=== PATIENT | female | born 1955 | race Caucasian/White ===

== ENCOUNTER 2016-11-10 10:01 | Emergency (ER) | payer OTHER ==
--- NOTE | 2016-11-10 11:03 | ED ORDER SUMMARY ---
..... Patient: MIGUEL ÁNGEL BERNSTEIN OrderSheet [facility] VisitID: [id number] [address] [place] [address] 61y, F Registration Date/Time: 11/10/2016 ORDER SHEET Weight: 113.3 kg (stated) Allergies: No Known Drug Allergy GENERAL ORDERS: Foot 3V Right Urgent (10:11/10/2016 Jossue Shukla) (Ack 10:26 IJurca ER Tech1) (10:58 IJurca ER Tech1) Dress Wounds (gauze) (baci) (10:29 11/10/2016 Jossue Shukla) (11:35 DDean R.N.) Irrigate Wounds (10:30 11/10/2016 Jossue Shukla) (11:35 DDean R.N.) MEDICATION ORDERS: Keflex PO 500 mg (NOW) (10:11/10/2016 Jossue Shukla) (Ack 10:41 DDean R.N.) (10:54 DDean R.N.) Bactrim DS PO (Tablet 800-160 mg) 1 tab (NOW) (10:11/10/2016 Jossue Shukla) (Ack 10:41 DDean R.N.) (10:55 DDean R.N.) IV FLUIDS: ORDER SHEET NOTES: [Electronically signed by Deloris Ghotra R.N. (14:11/10/2016)] [Electronically signed by Thierry Barton Dr. (23:04 11/10/2016)] [Electronically locked/signed by Deloris Ghotra R.N. (14:11/10/2016)]
--- NOTE | 2016-11-10 11:03 | ED CLINICAL REPORT ---
Clinical Report - Physicians/Mid Levels [facility] [address] [place] [address] 11/10/2016 10:02 Patient: MIGUEL ÁNGEL BERNSTEIN Time Seen: 1020. Arrived- By private vehicle. Historian- patient. HISTORY OF PRESENT ILLNESS Chief Complaint: SKIN RASH. This started past few days and is still present (unchanged). It was gradual in onset and has been constant but is not gone now. It is described as painful. It has been located on the left foot dorsum. A possible cause has been identified (infection from blister to foot.). (states she has gout and likely broke the bone in her foot sometime but has not seen a doctor. reports it healed however with dexter abnormality. swelling noted with redness.). Similar symptoms previously: None. Recent medical care: Not recently seen/assessed. REVIEW OF SYSTEMS No fever, difficulty breathing, chest pain or abdominal pain. All systems otherwise negative, except as recorded above. PAST HISTORY See nurses notes. Tetanus immunization status is up-to-date. Medications: Metformin 500mg - 1 at breakfast, 2 and lunch and dinner . Methocarbamol Oral 750 mg- 2 tabs BID prn . ASA Oral 81mg daily . FLUoxetine HCl Oral 20 mg- 2 tabs daily . Glipizide Oral 10 mg- 2 tabs daily . Lisinopril-Hydrochlorothiazide Oral (Tablet 10-12.5 mg) 1 tablet, daily . Vicodin Oral 5 mg - 2 tabs BID. MG oral tab 1 daily . Allergies: No Known Drug Allergy. SOCIAL HISTORY Never smoker. No alcohol use or drug use. No recent travel. Is a local resident. ADDITIONAL NOTES The nursing notes have been reviewed. PHYSICAL EXAM Vital Signs: 11/10/2016 10:08 BP: 110/47. HR: 74. RR: 18. O2 saturation: 98%. Temp: 98.3 F. Pain level now: 0/10. 11/10/2016 10:07 Pain level now: 0/10. Blood pressure normal. Oxygen saturation normal. Appearance: Alert. Oriented X3. No acute distress. CVS: Normal heart rate and rhythm. Heart sounds normal. Respiratory: No respiratory distress. Breath sounds normal. Chest nontender. Abdomen: Nontender. No organomegaly. Skin: Small area of cellulitis to right foot. (dexter abnormality of the fist metatarsal joint. overlying rupture blister with surrounding are of cellulitis. no abscess. no masses. compartments soft. neurovasc intact.). Extremities: Normal external inspection. Extremities nontender. Neuro: Oriented X 3. No motor deficit. No sensory deficit. LABS, X-RAYS, AND EKG Rt Foot X-ray: No fracture. Normal alignment. 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 Views: AP, lateral and oblique. Technique: good. The X-rays were independently viewed by me and interpreted by the radiologist. The X-rays were discussed with the radiologist (via pacs). PROGRESS AND PROCEDURES Course of Care: The patient is a pleasant 61 yo female with hx of possible fracture/gout to the foot. Patient to be evaluated with radiographs to check the dexter abnormality on exam. Patient agreeable to the treatment and plan. patient without acute osseous abnormalities. patient without systemic symptoms. patient non-toxic. abx provided in the ED. Discussed with patient her work up in the ED, diagnosis, home care, followup , and return precautions. All questions answered. Patient expressed understanding of these instructions and was agreeable to them. Disposition: Discharged. Condition: good. CLINICAL IMPRESSION 11/10/2016 10:08 BP: 110/47. HR: 74. RR: 18. O2 saturation: 98%. Temp: 98.3 F. Pain level now: 0/10. 11/10/2016 10:07 Pain level now: 0/10. Blood pressure normal. Oxygen saturation normal. Cellulitis of the right foot (acute). acute right foot pain. INSTRUCTIONS Warnings: GENERAL WARNINGS: Return or contact your physician immediately if your condition worsens or changes unexpectedly, if not improving as expected, or if other problems arise. Specifically return if pain, vomiting, bleeding, breathing difficulty or fever. Prescription Medications: Bactrim DS 800 mg / 160 mg: take 1 tablet orally every 12 hours for 10 days. No refill. Substitution is permissible. (disp 20 tabs) Keflex 500 mg: take 1 capsule orally every 12 hours for 10 days. No refill. Substitution is permissible. (disp 20 caps) Follow-up: Return to the emergency department as needed. Follow up with your doctor in three days. Reason for referral: recheck today's concerns. Summary of care provided to patient via paper. Screening today revealed the patient's blood pressure to be in the normal range. The patient should follow up with a primary care provider for blood pressure management. Understanding of the discharge instructions verbalized by patient. (Electronically signed by Thierry Barton Dr. 11/10/2016 23:04)
--- NOTE | 2016-11-10 11:03 | ED ORDER SUMMARY ---
..... Patient: MIGUEL ÁNGEL BERNSTEIN OrderSheet [facility] VisitID: [id number] [address] [place] [address] 61y, F Registration Date/Time: 11/10/2016 ORDER SHEET Weight: 113.3 kg (stated) Allergies: No Known Drug Allergy GENERAL ORDERS: Foot 3V Right Urgent (10:11/10/2016 Jossue Shukla) (Ack 10:26 IJurca ER Tech1) (10:58 IJurca ER Tech1) Dress Wounds (gauze) (baci) (10:29 11/10/2016 Jossue Shukla) (11:35 DDean R.N.) Irrigate Wounds (10:30 11/10/2016 Jossue Shukla) (11:35 DDean R.N.) MEDICATION ORDERS: Keflex PO 500 mg (NOW) (10:11/10/2016 Jossue Shukla) (Ack 10:41 DDean R.N.) (10:54 DDean R.N.) Bactrim DS PO (Tablet 800-160 mg) 1 tab (NOW) (10:11/10/2016 Jossue Shukla) (Ack 10:41 DDean R.N.) (10:55 DDean R.N.) IV FLUIDS: ORDER SHEET NOTES: [Electronically signed by Deloris Ghotra R.N. (14:11/10/2016)] [Electronically signed by Thierry Barton Dr. (23:04 11/10/2016)] [Electronically locked/signed by Deloris Ghotra R.N. (14:11/10/2016)]
--- NOTE | 2016-11-10 11:03 | ED NURSING NOTES ---
Clinical Report - Nurses [facility] [address] [place] [address] 11/10/2016 10:02 Patient: MIGUEL ÁNGEL BERNSTEIN TRIAGE Triage time 1008. Acuity: LEVEL 4. --10:12 Deloris Ghotra R.N. 10:07 11/10/16. Pain level now: 010. --10:12 Deloris Ghotra R.N. 10:08 11/10/16. BP: 110/47. HR: 74. RR: 18. O2 saturation: 98%. Temp: 98.3 F. Pain level now: 010. --10:13 Deloris Ghotra R.N. Triage time 1007. Chief Complaint: TENDER AREA and . swelling and redness to rt foot. --14:05 Deloris Ghotra R.N. Weight: 113.3 kg stated. Height/Length: 66 inches Per Patient. BMI: 40.3. --10:09 Deloris Ghotra R.N. Medications MG oral tab 1 daily . --13:58 Deloris Ghotra R.N. ASA Oral 81mg daily . FLUoxetine HCl Oral 20 mg- 2 tabs daily . Glipizide Oral 10 mg- 2 tabs daily . Lisinopril-Hydrochlorothiazide Oral (Tablet 10-12.5 mg) 1 tablet, daily . Vicodin Oral 5 mg - 2 tabs BID. --13:59 Deloris Ghotra R.N. Methocarbamol Oral 750 mg- 2 tabs BID prn . --14:02 Deloris Ghotra R.N. Metformin 500mg - 1 at breakfast, 2 and lunch and dinner . --14:03 Deloris Ghotra R.N. Allergies No Known Drug Allergy. --12:12 Deloris Ghotra R.N. History Arrived by private vehicle. Historian: patient. Unaccompanied. Primary physician ([facility]). This started yesterday. 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 SOCIAL HX: Never smoker. No alcohol use or drug use. --10:12 Deloris Ghotra R.N. PROBLEMS: Hypertension. Diabetes Mellitus. --10:09 Deloris Ghotra R.N. Fibromyalgia. Diaqbetic neuropathy. --10:12 Deloris Ghotra R.N. ADDITIONAL SURGERIES: Appendectomy. Facial reconstruction on face. --10:12 Deloris Gohtra R.N. Interventions ID band on patient. To treatment room. --10:12 Deloris Ghotra R.N. PHYSICAL ASSESSMENT 10:08. Ambulatory to room. Patient gowned. GENERAL / NEURO / PSYCH: Alert. The patient does not appear to be in acute distress. Oriented X 4. RESPIRATORY: Respirations not labored. CVS: Capillary refill less than 2 seconds. SKIN: Drainage. Skin tenderness present. Swelling present. Increased warmth present. Erythema present. --10:14 Deloris Ghotra R.N. NURSING PROGRESS NOTES 10:08. Patient gowned. Head of bed elevated. Reassurance given. Patient identifiers checked. Call light placed in reach. Side rails up. Bed placed in lowest position. Patient ready for evaluation- chart flagged. --10:14 Deloris Ghotra R.N. 10:41 11/10/2016 Keflex (Cephalexin) PO Capsules 500 mg given. Allergies verified and confirmed 5 rights. --10:54 Deloris Ghotra R.N. 10:41 11/10/2016 Bactrim DS (Sulfamethoxazole-TMP DS) PO Tablets 1 tab given. Allergies verified and confirmed 5 rights. --10:55 Deloris Ghotra R.N. Wound cleansed with sterile saline and chlorhexidine. Wound irrigated with 500 mL sterile NS using a high-pressure irrigation system; patient tolerated procedure well. 3D boot applied to right foot by tech; distal pulses intact, sensation intact and motor function within normal limits. --11:23 Miranda Katz late entry -11:20. Applied clean dressing consisting of adaptic and 4x4 gauze, following the application of antibiotic ointment. Secured with tape and kerlix. --11:47 Deloris Ghotra R.N. DISPOSITION / DISCHARGE 11:25. Condition at departure: stable. No learning barriers present. Discharge instructions provided and reviewed with the patient. Reviewed medication(s) (bactrim, keflex). Reviewed wound care instructions (post op shoe). Patient verbalized understanding. Written instructions provided in Yakut. The patient was discharged home and unaccompanied at time of discharge. She left the Emergency Department ambulatory and via private vehicle. Patient driving. --11:46 Deloris Ghotra R.N. 11:25 11/10/16. BP: 116/61. HR: 73. RR: 18. O2 saturation: 97% on room air. Temp: deferred. Pain level now: 0/10. --11:46 Deloris Ghotra R.N. Locked/Released at 11/10/2016 14:05 by Deloris Ghotra R.N.
--- NOTE | 2016-11-10 11:03 | ED NURSING NOTES ---
Clinical Report - Nurses [facility] [address] [place] [address] 11/10/2016 10:02 Patient: MIGUEL ÁNGEL BERNSTEIN TRIAGE Triage time 1008. Acuity: LEVEL 4. --10:12 Deloris Ghotra R.N. 10:07 11/10/16. Pain level now: 010. --10:12 Deloris Ghotra R.N. 10:08 11/10/16. BP: 110/47. HR: 74. RR: 18. O2 saturation: 98%. Temp: 98.3 F. Pain level now: 010. --10:13 Deloris Ghotra R.N. Triage time 1007. Chief Complaint: TENDER AREA and . swelling and redness to rt foot. --14:05 Deloris Ghotra R.N. Weight: 113.3 kg stated. Height/Length: 66 inches Per Patient. BMI: 40.3. --10:09 Deloris Ghotra R.N. Medications MG oral tab 1 daily . --13:58 Deloris Ghotra R.N. ASA Oral 81mg daily . FLUoxetine HCl Oral 20 mg- 2 tabs daily . Glipizide Oral 10 mg- 2 tabs daily . Lisinopril-Hydrochlorothiazide Oral (Tablet 10-12.5 mg) 1 tablet, daily . Vicodin Oral 5 mg - 2 tabs BID. --13:59 Deloris Ghotra R.N. Methocarbamol Oral 750 mg- 2 tabs BID prn . --14:02 Deloris Ghotra R.N. Metformin 500mg - 1 at breakfast, 2 and lunch and dinner . --14:03 Deloris Ghotra R.N. Allergies No Known Drug Allergy. --12:12 Deloris Ghotra R.N. History Arrived by private vehicle. Historian: patient. Unaccompanied. Primary physician ([facility]). This started yesterday. 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 SOCIAL HX: Never smoker. No alcohol use or drug use. --10:12 Deloris Ghotra R.N. PROBLEMS: Hypertension. Diabetes Mellitus. --10:09 Deloris Ghotra R.N. Fibromyalgia. Diaqbetic neuropathy. --10:12 Deloris Ghotra R.N. ADDITIONAL SURGERIES: Appendectomy. Facial reconstruction on face. --10:12 Deloris Ghotra R.N. Interventions ID band on patient. To treatment room. --10:12 Deloris Ghotra R.N. PHYSICAL ASSESSMENT 10:08. Ambulatory to room. Patient gowned. GENERAL / NEURO / PSYCH: Alert. The patient does not appear to be in acute distress. Oriented X 4. RESPIRATORY: Respirations not labored. CVS: Capillary refill less than 2 seconds. SKIN: Drainage. Skin tenderness present. Swelling present. Increased warmth present. Erythema present. --10:14 Deloris Ghotra R.N. NURSING PROGRESS NOTES 10:08. Patient gowned. Head of bed elevated. Reassurance given. Patient identifiers checked. Call light placed in reach. Side rails up. Bed placed in lowest position. Patient ready for evaluation- chart flagged. --10:14 Deloris Ghotra R.N. 10:41 11/10/2016 Keflex (Cephalexin) PO Capsules 500 mg given. Allergies verified and confirmed 5 rights. --10:54 Deloris Ghotra R.N. 10:41 11/10/2016 Bactrim DS (Sulfamethoxazole-TMP DS) PO Tablets 1 tab given. Allergies verified and confirmed 5 rights. --10:55 Deloris Ghotra R.N. Wound cleansed with sterile saline and chlorhexidine. Wound irrigated with 500 mL sterile NS using a high-pressure irrigation system; patient tolerated procedure well. 3D boot applied to right foot by tech; distal pulses intact, sensation intact and motor function within normal limits. --11:23 Miranda Katz late entry -11:20. Applied clean dressing consisting of adaptic and 4x4 gauze, following the application of antibiotic ointment. Secured with tape and kerlix. --11:47 Deloris Ghotra R.N. DISPOSITION / DISCHARGE 11:25. Condition at departure: stable. No learning barriers present. Discharge instructions provided and reviewed with the patient. Reviewed medication(s) (bactrim, keflex). Reviewed wound care instructions (post op shoe). Patient verbalized understanding. Written instructions provided in Hungarian. The patient was discharged home and unaccompanied at time of discharge. She left the Emergency Department ambulatory and via private vehicle. Patient driving. --11:46 Deloris Ghotra R.N. 11:25 11/10/16. BP: 116/61. HR: 73. RR: 18. O2 saturation: 97% on room air. Temp: deferred. Pain level now: 0/10. --11:46 Deloris Ghotra R.N. Locked/Released at 11/10/2016 14:05 by Deloris Ghotra R.N.
--- NOTE | 2016-11-10 11:21 | DIAGNOSTIC IMAGING REPORT ---
PROCEDURE: XR FOOT 3 VIEWS - RIGHT INDICATION: SWELLING, CELLULITIS, WARMTH TECHNIQUE: Three views. COMPARISON: None. 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 On the dorsal surface of the - hyper trophic bone there is cortical breakdown that could represent osteomyelitis. IMPRESSION: 1. First MTP joint bony hypertrophy and cortical breakdown suggestive of osteomyelitis.
--- NOTE | 2016-11-10 23:04 | ED DISCHARGE INSTRUCTIONS ---
Patient: MIGUEL ÁNGEL BERNSTEIN General Instructions [facility] VisitID: [id number] [address] [place] [address] 61y, F Registration Date/Time: 11/10/2016 11/10/2016 10:08 BP: 110/47. HR: 74. RR: 18. O2 saturation: 98%. Temp: 98.3 F. Pain level now: 0/10. 11/10/2016 10:07 Pain level now: 0/10. Blood pressure normal. Oxygen saturation normal. Cellulitis of the right foot (acute). acute right foot pain. INSTRUCTIONS Warnings: GENERAL WARNINGS: Return or contact your physician immediately if your condition worsens or changes unexpectedly, if not improving as expected, or if other problems arise. Specifically return if pain, vomiting, bleeding, breathing difficulty or fever. Prescription Medications: Bactrim DS 800 mg / 160 mg: take 1 tablet orally every 12 hours for 10 days. No refill. Substitution is permissible. (disp 20 tabs) Keflex 500 mg: take 1 capsule orally every 12 hours for 10 days. No refill. Substitution is permissible. (disp 20 caps) Follow-up: Return to the emergency department as needed. Follow up with your doctor in three days. Reason for referral: recheck today's concerns. Summary of care provided to patient via paper. Screening today revealed the patient's blood pressure to be in the normal range. The patient should follow up with a primary care provider for blood pressure management. Understanding of the discharge instructions verbalized by patient. ADDITIONAL INFORMATION Cellulitis You have an infection of the skin known as cellulitis. This usually starts with a scrape, cut, insect bite, blister or other opening in the skin which becomes infected. This is a serious condition. It must be watched closely to be sure the infection is not spreading. With antibiotic treatment, the size of the red area will gradually shrink in size until the skin returns to normal. This will take 7-10 days. The red area should never increase in size once the antibiotic medicine has been started. Occasionally, an infection will be resistant to one antibiotic and another one will have to be used. Home Care: 1) Limit the use of the affected part, since excess movement can cause the infection to spread. 2) If the infection is on your leg, walk as little as possible during the first few days of the treatment. Keep your leg elevated while sitting. This will reduce swelling. 3) Take all of the antibiotic medicine exactly as directed until it is gone. Be careful not to miss any doses, especially during the first seven days. Follow Up with your doctor or this facility as directed. Check the infected area daily for the warning signs listed below. Get Prompt Medical Attention if any of the following occur: -- Spreading area of redness -- Increasing swelling or pain -- Appearance of pus or drainage -- Fever over 100.4 F (38.0 C) oral, or over 101.4 F (38.6 C) rectal, after two days on antibiotics Sulfamethoxazole, Trimethoprim Oral tablet What is this medicine? SULFAMETHOXAZOLE; TRIMETHOPRIM or SMX-TMP (suhl fuh meth OK radha zohl; trye METH oh prim) is a combination of a sulfonamide antibiotic and a second antibiotic, trimethoprim. It is used to treat or prevent certain kinds of bacterial infections. It will not work for colds, flu, or other viral infections. How should I use this medicine? Take this medicine by mouth with a full glass of water. Follow the directions on the prescription label. Take your medicine at regular intervals. Do not take it more often than directed. Do not skip doses or stop your medicine early. Talk to your impersonator character regarding the use of this medicine in children. Special care may be needed. This medicine has been used in children as young as 2 months of age. What side effects may I notice from receiving this medicine? Side effects that you should report to your doctor or health health care specialist as soon as possible: allergic reactions like skin rash or hives, swelling of the face, lips, or tongue breathing problems fever or chills, sore throat irregular heartbeat, chest pain joint or muscle pain pain or difficulty passing urine red pinpoint spots on skin redness, blistering, peeling or loosening of the skin, including inside the mouth unusual bleeding or bruising unusually weak or tired yellowing of the eyes or skin Side effects that usually do not require medical attention (report to your doctor or health health care specialist if they continue or are bothersome): diarrhea dizziness headache loss of appetite nausea, vomiting nervousness What may interact with this medicine? Do not take this medicine with any of the following medications: aminobenzoate potassium dofetilide metronidazole This medicine may also interact with the following medications: MELISSA inhibitors like benazepril, enalapril, lisinopril, and ramipril cyclosporine digoxin diuretics indomethacin medicines for diabetes methenamine methotrexate phenytoin potassium supplements pyrimethamine sulfinpyrazone tricyclic antidepressants warfarin What if I miss a dose? If you miss a dose, take it as soon as you can. If it is almost time for your next dose, take only that dose. Do not take double or extra doses. Where should I keep my medicine? Keep out of the reach of children. Store at room temperature between 20 to 25 degrees C (68 to 77 degrees F). Protect from light. Throw away any unused medicine after the expiration date. What should I tell my health care provider before I take this medicine? They need to know if you have any of these conditions: anemia asthma being treated with anticonvulsants if you frequently drink alcohol containing drinks kidney disease liver disease low level of folic acid or [id number] dehydrogenase poor nutrition or malabsorption porphyria severe allergies thyroid disorder an unusual or allergic reaction to sulfamethoxazole, trimethoprim, sulfa drugs, other medicines, foods, dyes, or preservatives or trying to get breast-feeding What should I watch for while using this medicine? Tell your doctor or health health care specialist if your symptoms do not improve. Drink several glasses of water a day to reduce the risk of kidney problems. Do not treat diarrhea with over the counter products. Contact your doctor if you have diarrhea that lasts more than 2 days or if it is severe and watery. This medicine can make you more sensitive to the sun. Keep out of the sun. If you cannot avoid being in the sun, wear protective clothing and use a sunscreen. Do not use sun lamps or tanning beds/booths. Cephalexin Monohydrate Oral tablet What is this medicine? CEPHALEXIN (sef a DAVID in) is a cephalosporin antibiotic. It is used to treat certain kinds of bacterial infections It will not work for colds, flu, or other viral infections. How should I use this medicine? Take this medicine by mouth with a full glass of water. Follow the directions on the prescription label. This medicine can be taken with or without food. Take your medicine at regular intervals. Do not take your medicine more often than directed. Take all of your medicine as directed even if you think you are better. Do not skip doses or stop your medicine early. Talk to your impersonator character regarding the use of this medicine in children. While this drug may be prescribed for selected conditions, precautions do apply. What side effects may I notice from receiving this medicine? Side effects that you should report to your doctor or health health care specialist as soon as possible: allergic reactions like skin rash, itching or hives, swelling of the face, lips, or tongue breathing problems pain or trouble passing urine redness, blistering, peeling or loosening of the skin, including inside the mouth severe or watery diarrhea unusually weak or tired yellowing of the eyes, skin Side effects that usually do not require medical attention (report to your doctor or health health care specialist if they continue or are bothersome): gas or heartburn genital or anal irritation headache joint or muscle pain nausea, vomiting What may interact with this medicine? probenecid some other antibiotics What if I miss a dose? If you miss a dose, take it as soon as you can. If it is almost time for your next dose, take only that dose. Do not take double or extra doses. There should be at least 4 to 6 hours between doses. Where should I keep my medicine? Keep out of the reach of children. Store at room temperature between 59 and 86 degrees F (15 and 30 degrees C). Throw away any unused medicine after the expiration date. What should I tell my health care provider before I take this medicine? They need to know if you have any of these conditions: kidney disease stomach or intestine problems, especially colitis an unusual or allergic reaction to cephalexin, other cephalosporins, penicillins, other antibiotics, medicines, foods, dyes or preservatives or trying to get breast-feeding What should I watch for while using this medicine? Tell your doctor or health health care specialist if your symptoms do not begin to improve in a few days. Do not treat diarrhea with over the counter products. Contact your doctor if you have diarrhea that lasts more than 2 days or if it is severe and watery. If you have diabetes, you may get a false-positive result for sugar in your urine. Check with your doctor or health health care specialist. You have been given the following additional information: Cellulitis Sulfamethoxazole, Trimethoprim Oral tablet Cephalexin Monohydrate Oral tablet (Electronically signed by Thierry Barton Dr. 11/10/2016 23:04)
--- NOTE | 2016-11-10 23:04 | ED MAR SUMMARY ---
..... Medication Administration Record [facility] [address] [place] [address] Patient: MIGUEL ÁNGEL BERNSTEIN Visit ID: [id number] 61y, F Weight: 113.3 kg Height/Length: 66 in BMI: 40.3 ALLERGIES: No Known Drug Allergy Given 10:11/10/2016 Deloris Ghotra, RHayesN. Medication Administered: KEFLEX [PO] (CEPHALEXIN), Dose: 500 mg Capsules PO. Medication Ordered: Keflex PO 500 mg (NOW). Given 10:11/10/2016 Deloris Ghotra, R.N. Medication Administered: BACTRIM DS [PO] (SULFAMETHOXAZOLE-TMP DS), Dose: 1 tab Tablets PO. Medication Ordered: Bactrim DS PO (Tablet 800-160 mg) 1 tab (NOW).
--- NOTE | 2016-11-10 23:04 | ED MED RECONCILIATION SUMMARY ---
Patient: MIGUEL ÁNGEL BERNSTEIN Medication Reconciliation Report [facility] VisitID: [id number] [address] [place] [address] 61y, F Registration Date/Time: 11/10/2016 Weight: 113.3 kg Height/Length: 66 in. BMI: 40.3 ALLERGIES: No Known Drug Allergy The patient's Home Medications are listed below: THE FOLLOWING MEDICATIONS NEED TO BE RECONCILED: ASA Oral 81mg daily FLUoxetine HCl Oral 20 mg- 2 tabs daily Glipizide Oral 10 mg- 2 tabs daily Lisinopril-Hydrochlorothiazide Oral (10-12.5 mg) 1 tablet, daily Metformin 500mg - 1 at breakfast, 2 and lunch and dinner Methocarbamol Oral 750 mg- 2 tabs BID prn MG oral tab 1 daily Vicodin Oral 5 mg - 2 tabs BID The source(s) of the original Home Medication information: Not obtained. The following Medications were given to the patient in the Emergency Department: Keflex [PO] PO 500 mg, administered: 11/10/2016 10:41:00 AM Bactrim DS [PO] PO 1 tab, administered: 11/10/2016 10:41:00 AM The following Medications were prescribed to the patient: Bactrim DS 800 mg / 160 mg: take 1 tablet orally every 12 hours for 10 days. No refill. Substitution is permissible.(disp 20 tabs) -- Thierry Barton Dr. Keflex 500 mg: take 1 capsule orally every 12 hours for 10 days. No refill. Substitution is permissible.(disp 20 caps) -- Thierry Barton Dr.
--- NOTE | 2016-11-10 23:04 | ED MAR SUMMARY ---
..... Medication Administration Record [facility] [address] [place] [address] Patient: MIGUEL ÁNGEL BERNSTEIN Visit ID: [id number] 61y, F Weight: 113.3 kg Height/Length: 66 in BMI: 40.3 ALLERGIES: No Known Drug Allergy Given 10:11/10/2016 Deloris Ghotra, RHayesN. Medication Administered: KEFLEX [PO] (CEPHALEXIN), Dose: 500 mg Capsules PO. Medication Ordered: Keflex PO 500 mg (NOW). Given 10:11/10/2016 Deloris Ghotra, R.N. Medication Administered: BACTRIM DS [PO] (SULFAMETHOXAZOLE-TMP DS), Dose: 1 tab Tablets PO. Medication Ordered: Bactrim DS PO (Tablet 800-160 mg) 1 tab (NOW).
--- NOTE | 2016-11-10 23:04 | ED DISCHARGE INSTRUCTIONS ---
Patient: MIGUEL ÁNGEL BERNSTEIN General Instructions [facility] VisitID: [id number] [address] [place] [address] 61y, F Registration Date/Time: 11/10/2016 11/10/2016 10:08 BP: 110/47. HR: 74. RR: 18. O2 saturation: 98%. Temp: 98.3 F. Pain level now: 0/10. 11/10/2016 10:07 Pain level now: 0/10. Blood pressure normal. Oxygen saturation normal. Cellulitis of the right foot (acute). acute right foot pain. INSTRUCTIONS Warnings: GENERAL WARNINGS: Return or contact your physician immediately if your condition worsens or changes unexpectedly, if not improving as expected, or if other problems arise. Specifically return if pain, vomiting, bleeding, breathing difficulty or fever. Prescription Medications: Bactrim DS 800 mg / 160 mg: take 1 tablet orally every 12 hours for 10 days. No refill. Substitution is permissible. (disp 20 tabs) Keflex 500 mg: take 1 capsule orally every 12 hours for 10 days. No refill. Substitution is permissible. (disp 20 caps) Follow-up: Return to the emergency department as needed. Follow up with your doctor in three days. Reason for referral: recheck today's concerns. Summary of care provided to patient via paper. Screening today revealed the patient's blood pressure to be in the normal range. The patient should follow up with a primary care provider for blood pressure management. Understanding of the discharge instructions verbalized by patient. ADDITIONAL INFORMATION Cellulitis You have an infection of the skin known as cellulitis. This usually starts with a scrape, cut, insect bite, blister or other opening in the skin which becomes infected. This is a serious condition. It must be watched closely to be sure the infection is not spreading. With antibiotic treatment, the size of the red area will gradually shrink in size until the skin returns to normal. This will take 7-10 days. The red area should never increase in size once the antibiotic medicine has been started. Occasionally, an infection will be resistant to one antibiotic and another one will have to be used. Home Care: 1) Limit the use of the affected part, since excess movement can cause the infection to spread. 2) If the infection is on your leg, walk as little as possible during the first few days of the treatment. Keep your leg elevated while sitting. This will reduce swelling. 3) Take all of the antibiotic medicine exactly as directed until it is gone. Be careful not to miss any doses, especially during the first seven days. Follow Up with your doctor or this facility as directed. Check the infected area daily for the warning signs listed below. Get Prompt Medical Attention if any of the following occur: -- Spreading area of redness -- Increasing swelling or pain -- Appearance of pus or drainage -- Fever over 100.4 F (38.0 C) oral, or over 101.4 F (38.6 C) rectal, after two days on antibiotics Sulfamethoxazole, Trimethoprim Oral tablet What is this medicine? SULFAMETHOXAZOLE; TRIMETHOPRIM or SMX-TMP (suhl fuh meth OK radha zohl; trye METH oh prim) is a combination of a sulfonamide antibiotic and a second antibiotic, trimethoprim. It is used to treat or prevent certain kinds of bacterial infections. It will not work for colds, flu, or other viral infections. How should I use this medicine? Take this medicine by mouth with a full glass of water. Follow the directions on the prescription label. Take your medicine at regular intervals. Do not take it more often than directed. Do not skip doses or stop your medicine early. Talk to your stand up forklift operator regarding the use of this medicine in children. Special care may be needed. This medicine has been used in children as young as 2 months of age. What side effects may I notice from receiving this medicine? Side effects that you should report to your doctor or health memory care program director as soon as possible: allergic reactions like skin rash or hives, swelling of the face, lips, or tongue breathing problems fever or chills, sore throat irregular heartbeat, chest pain joint or muscle pain pain or difficulty passing urine red pinpoint spots on skin redness, blistering, peeling or loosening of the skin, including inside the mouth unusual bleeding or bruising unusually weak or tired yellowing of the eyes or skin Side effects that usually do not require medical attention (report to your doctor or health memory care program director if they continue or are bothersome): diarrhea dizziness headache loss of appetite nausea, vomiting nervousness What may interact with this medicine? Do not take this medicine with any of the following medications: aminobenzoate potassium dofetilide metronidazole This medicine may also interact with the following medications: MELISSA inhibitors like benazepril, enalapril, lisinopril, and ramipril cyclosporine digoxin diuretics indomethacin medicines for diabetes methenamine methotrexate phenytoin potassium supplements pyrimethamine sulfinpyrazone tricyclic antidepressants warfarin What if I miss a dose? If you miss a dose, take it as soon as you can. If it is almost time for your next dose, take only that dose. Do not take double or extra doses. Where should I keep my medicine? Keep out of the reach of children. Store at room temperature between 20 to 25 degrees C (68 to 77 degrees F). Protect from light. Throw away any unused medicine after the expiration date. What should I tell my health care provider before I take this medicine? They need to know if you have any of these conditions: anemia asthma being treated with anticonvulsants if you frequently drink alcohol containing drinks kidney disease liver disease low level of folic acid or susrofs-[id number] dehydrogenase poor nutrition or malabsorption porphyria severe allergies thyroid disorder an unusual or allergic reaction to sulfamethoxazole, trimethoprim, sulfa drugs, other medicines, foods, dyes, or preservatives or trying to get breast-feeding What should I watch for while using this medicine? Tell your doctor or health memory care program director if your symptoms do not improve. Drink several glasses of water a day to reduce the risk of kidney problems. Do not treat diarrhea with over the counter products. Contact your doctor if you have diarrhea that lasts more than 2 days or if it is severe and watery. This medicine can make you more sensitive to the sun. Keep out of the sun. If you cannot avoid being in the sun, wear protective clothing and use a sunscreen. Do not use sun lamps or tanning beds/booths. Cephalexin Monohydrate Oral tablet What is this medicine? CEPHALEXIN (sef a DAVID in) is a cephalosporin antibiotic. It is used to treat certain kinds of bacterial infections It will not work for colds, flu, or other viral infections. How should I use this medicine? Take this medicine by mouth with a full glass of water. Follow the directions on the prescription label. This medicine can be taken with or without food. Take your medicine at regular intervals. Do not take your medicine more often than directed. Take all of your medicine as directed even if you think you are better. Do not skip doses or stop your medicine early. Talk to your stand up forklift operator regarding the use of this medicine in children. While this drug may be prescribed for selected conditions, precautions do apply. What side effects may I notice from receiving this medicine? Side effects that you should report to your doctor or health memory care program director as soon as possible: allergic reactions like skin rash, itching or hives, swelling of the face, lips, or tongue breathing problems pain or trouble passing urine redness, blistering, peeling or loosening of the skin, including inside the mouth severe or watery diarrhea unusually weak or tired yellowing of the eyes, skin Side effects that usually do not require medical attention (report to your doctor or health memory care program director if they continue or are bothersome): gas or heartburn genital or anal irritation headache joint or muscle pain nausea, vomiting What may interact with this medicine? probenecid some other antibiotics What if I miss a dose? If you miss a dose, take it as soon as you can. If it is almost time for your next dose, take only that dose. Do not take double or extra doses. There should be at least 4 to 6 hours between doses. Where should I keep my medicine? Keep out of the reach of children. Store at room temperature between 59 and 86 degrees F (15 and 30 degrees C). Throw away any unused medicine after the expiration date. What should I tell my health care provider before I take this medicine? They need to know if you have any of these conditions: kidney disease stomach or intestine problems, especially colitis an unusual or allergic reaction to cephalexin, other cephalosporins, penicillins, other antibiotics, medicines, foods, dyes or preservatives or trying to get breast-feeding What should I watch for while using this medicine? Tell your doctor or health memory care program director if your symptoms do not begin to improve in a few days. Do not treat diarrhea with over the counter products. Contact your doctor if you have diarrhea that lasts more than 2 days or if it is severe and watery. If you have diabetes, you may get a false-positive result for sugar in your urine. Check with your doctor or health memory care program director. You have been given the following additional information: Cellulitis Sulfamethoxazole, Trimethoprim Oral tablet Cephalexin Monohydrate Oral tablet (Electronically signed by Thierry Barton Dr. 11/10/2016 23:04)
--- NOTE | 2016-11-10 23:04 | ED MED RECONCILIATION SUMMARY ---
Patient: MIGUEL ÁNGEL BERNSTEIN Medication Reconciliation Report [facility] VisitID: [id number] [address] [place] [address] 61y, F Registration Date/Time: 11/10/2016 Weight: 113.3 kg Height/Length: 66 in. BMI: 40.3 ALLERGIES: No Known Drug Allergy The patient's Home Medications are listed below: THE FOLLOWING MEDICATIONS NEED TO BE RECONCILED: ASA Oral 81mg daily FLUoxetine HCl Oral 20 mg- 2 tabs daily Glipizide Oral 10 mg- 2 tabs daily Lisinopril-Hydrochlorothiazide Oral (10-12.5 mg) 1 tablet, daily Metformin 500mg - 1 at breakfast, 2 and lunch and dinner Methocarbamol Oral 750 mg- 2 tabs BID prn MG oral tab 1 daily Vicodin Oral 5 mg - 2 tabs BID The source(s) of the original Home Medication information: Not obtained. The following Medications were given to the patient in the Emergency Department: Keflex [PO] PO 500 mg, administered: 11/10/2016 10:41:00 AM Bactrim DS [PO] PO 1 tab, administered: 11/10/2016 10:41:00 AM The following Medications were prescribed to the patient: Bactrim DS 800 mg / 160 mg: take 1 tablet orally every 12 hours for 10 days. No refill. Substitution is permissible.(disp 20 tabs) -- Thierry Barton Dr. Keflex 500 mg: take 1 capsule orally every 12 hours for 10 days. No refill. Substitution is permissible.(disp 20 caps) -- Thierry Barton Dr.
== END 2016-11-10 11:28 | disposition home or self-care (01) ==
LOC: ED SRH 10:01
DX: L03.115 Cellulitis of right lower limb (principal); M79.671 Pain in right foot; Z79.82 Long term (current) use of aspirin; Z79.51 Long term (current) use of inhaled steroids; Z79.891 Long term (current) use of opiate analgesic; Z79.899 Other long term (current) drug therapy

== ENCOUNTER 2017-01-07 10:38 | Emergency (ER) | payer OTHER ==
--- NOTE | 2017-01-07 11:16 | ED CLINICAL REPORT ---
Clinical Report - Physicians/Mid Levels [facility] [address] [place] [address] 01/07/2017 10:39 Patient: MIGUEL ÁNGEL BERNSTEIN Time Seen: 10:49. Arrived- By private vehicle. Historian- patient. HISTORY OF PRESENT ILLNESS Chief Complaint: LESION. This started last night and is still present. It was abrupt in onset and has been constant. It is described as painful. It has been located on the right foot. A cause has been identified (Patient had a blister on the lateral inferior aspect of her right foot. This ruptured. This morning she noticed redness extending from the wound.). Similar symptoms previously: Once. ( she had a similar issue in a different spot on her same foot a couple of months ago.). REVIEW OF SYSTEMS No chills, fever, sweats, calf pain or chest pain. No cough, difficulty breathing, pedal edema, palpitations or abdominal pain. No constipation, diarrhea, nausea, vomiting or urinary problems. All systems otherwise negative, except as recorded above. PAST HISTORY Tetanus immunization status is up-to-date. Problems: Cellulitis. Fibromyalgia. Diaqbetic neuropathy. Hypertension. Diabetes Mellitus. Additional Surgeries: Appendectomy. Facial reconstruction on face. Medications: ASA Oral 81mg daily . FLUoxetine HCl Oral 20 mg- 2 tabs daily . Lisinopril-Hydrochlorothiazide Oral (Tablet 10-12.5 mg) 1 tablet, daily . Metformin 500mg - 1 at breakfast, 2 and lunch and dinner . Methocarbamol Oral 750 mg- 2 tabs BID prn . Vicodin Oral 5 mg - 2 tabs BID. Allergies: No Known Drug Allergy. SOCIAL HISTORY Never smoker. No alcohol use or drug use. FAMILY HISTORY Denies family medical history. ADDITIONAL NOTES The nursing notes have been reviewed. PHYSICAL EXAM Vital Signs: 01/07/2017 10:48 BP: 129/51. HR: 71. RR: 18. O2 saturation: 96%. Temp: 97.6 F. Pain level now: 0/10. Have been reviewed. Appearance: Alert. No acute distress. Eyes: Pupils equal, round and reactive to light. ENT: Pharynx normal. Neck: Neck supple. CVS: Heart sounds normal. Respiratory: Breath sounds normal. Skin: Medium area of cellulitis with tenderness, erythema and warmth to right foot. No lymphangitis. Extremities: No calf tenderness. PROGRESS AND PROCEDURES Course of Care: Patient is stable. Patient/family counseled. Old medical records reviewed. Disposition: Discharged. Condition: stable. CLINICAL IMPRESSION Cellulitis of the right foot. INSTRUCTIONS Warnings: Further evaluation is necessary. GENERAL WARNINGS: Return or contact your physician immediately if your condition worsens or changes unexpectedly, if not improving as expected, or if other problems arise. Your Current Medications: CONTINUE TAKING THE FOLLOWING MEDICATIONS: ASA Oral : 81mg daily. FLUoxetine HCl Oral : 20 mg- 2 tabs daily. Lisinopril-Hydrochlorothiazide Oral : Tablet 10-12.5 mg, 1 tablet daily. Metformin 500mg - 1 at breakfast, 2 and lunch and dinner *. Methocarbamol Oral : 750 mg- 2 tabs BID prn. Vicodin Oral : 5 mg - 2 tabs BID. Prescription Medications: Bactrim DS 800 mg / 160 mg: take 1 tablet orally every 12 hours for 10 days. No refill. Substitution is permissible. Clindamycin 300 mg: take 1 capsule orally every 6 hours for 10 days. No refill. Understanding of the discharge instructions verbalized by patient. Follow-up with: Emanuel Mitchell DPM, Podiatry, , [facility], [address] [place] [address], [address], [place] [address] Follow up Monday in two days. Call for an appointment. (Electronically signed by Clinton Bautista MD 01/07/2017 13:12)
--- NOTE | 2017-01-07 11:16 | ED NURSING NOTES ---
Clinical Report - Nurses [facility] [address] [place] [address] 01/07/2017 10:39 Patient: MIGUEL ÁNGEL BERNSTEIN TRIAGE Triage time 10:48. Acuity: LEVEL 3. Chief Complaint: RIGHT LOWER EXTREMITY PAIN, SWELLING and REDNESS. Location of symptoms- (Blister that had popped). Alert. No acute distress. SEPSIS SCREEN: Sepsis Screen: negative. Negative (no infection suspected/documented). NICCI COMA SCORE: [place] Coma Scale: 15- eyes open spontaneously (4); best verbal response- oriented x 4 (5); best motor response- obeys commands (6). --10:57 Luzmaria Maza R.N. 10:48 01/07/17. BP: 129/51. HR: 71. RR: 18. O2 saturation: 96%. Temp: 97.6 F. Pain level now: 0/10. Additional comments: Has neuropathy . --10:57 Luzmaria Maza R.N. 10:48 01/07/17. BP: 129/51. HR: 71. RR: 18. O2 saturation: 96%. Temp: 97.6 F. Pain level now: 0/10. Additional comments: Has neuropathy . --10:58 Luzmaria Maza R.N. 10:48 01/07/17. BP: 129/51. HR: 71. RR: 18. O2 saturation: 96%. Temp: 97.6 F. Pain level now: 0/10. Additional comments: Has neuropathy . --10:58 Luzmaria Maza R.N. Weight: 104.3 kg stated. Height/Length: 63 inches Per Patient. BMI: 40.7. --10:56 Luzmaria Maza R.N. Medications ASA Oral 81mg daily . FLUoxetine HCl Oral 20 mg- 2 tabs daily . Lisinopril-Hydrochlorothiazide Oral (Tablet 10-12.5 mg) 1 tablet, daily . Metformin 500mg - 1 at breakfast, 2 and lunch and dinner . Methocarbamol Oral 750 mg- 2 tabs BID prn . Vicodin Oral 5 mg - 2 tabs BID. --10:53 Luzmaria Maza R.N. Medication/allergy information source: the patient. --10:57 Luzmaria Maza R.N. Allergies No Known Drug Allergy. --10:53 Luzmaria Maza R.N. History Arrived by private vehicle. Historian: patient. Primary physician (Stephany,). No injury occurred. This occurred (2 days ago). Provoking / relieving factors: worsened by walking; relieved by sitting. She has had redness. She has had trouble walking (Walking on the side). Treatment STILL RUNNER: None. PAST MEDICAL HX: Tetanus status: up-to-date. The patient is post-menopausal. SOCIAL HX: Never smoker. No alcohol use or drug use. FALL RISK ASSESSMENT: Fall risk assessment completed. No fall risk identified. NUTRITIONAL RISK ASSESSMENT: The nutritional risk assessment revealed no deficiencies. FUNCTIONAL ASSESSMENT: Functional assessment: no impairments noted. LEARNING NEEDS ASSESSMENT: The learning needs assessment revealed no barriers. SKIN INTEGRITY ASSESSMENT: Skin integrity risk assessment completed. No skin integrity risk identified. --10:57 Luzmaria Maza R.N. PROBLEMS: Cellulitis. Fibromyalgia. Diaqbetic neuropathy. Hypertension. Diabetes Mellitus. --10:55 Luzmaria Maza R.N. ADDITIONAL SURGERIES: Appendectomy. Facial reconstruction on face. --10:55 Luzmaria Maza R.N. Interventions ID band on patient. To room. --10:57 Luzmaria Maza R.N. PHYSICAL ASSESSMENT Ambulatory to room. GENERAL / NEURO / PSYCH: Oriented X 4. Appears anxious. EXTREMITIES: Erythema on the extremities. Limited ROM present. Right foot: tenderness, swelling and erythema. SKIN: Skin is warm and dry. ( rt foot lateral). Skin breakdown noted. --10:59 Luzmaria Maza R.N. NURSING PROGRESS NOTES Extremity elevated. Two patient identifiers checked. Call light placed in reach. Side rails up x 2. Bed placed in lowest position. Brakes of bed on. Patient ready for evaluation. --10:59 Luzmaria Maza R.N. DISPOSITION / DISCHARGE 11:20. Condition at departure: unchanged. No learning barriers present. Reviewed medication(s) side effects, precautions, dosing and course information. Prescription(s) given to the patient. Reviewed referral to a flower shop laborer/designer for followup. Patient verbalized understanding. Written instructions provided in Taiwanese. The patient was discharged home. She left the Emergency Department ambulatory and via private vehicle. Patient driving. Medication list reviewed and validated. --11:46 Luzmaria Maza R.N. 10:48 01/07/17. BP: 129/51. HR: 71. RR: 18. O2 saturation: 96%. Temp: 97.6 F. Pain level now: 0/10. Additional comments: Has neuropathy . --11:46 Luzmaria Maza R.N. Locked/Released at 01/07/2017 12:07 by Luzmaria Maza R.N.
--- NOTE | 2017-01-07 11:16 | ED CLINICAL REPORT ---
Clinical Report - Physicians/Mid Levels [facility] [address] [place] [address] 01/07/2017 10:39 Patient: MIGUEL ÁNGEL BERNSTEIN Time Seen: 10:49. Arrived- By private vehicle. Historian- patient. HISTORY OF PRESENT ILLNESS Chief Complaint: LESION. This started last night and is still present. It was abrupt in onset and has been constant. It is described as painful. It has been located on the right foot. A cause has been identified (Patient had a blister on the lateral inferior aspect of her right foot. This ruptured. This morning she noticed redness extending from the wound.). Similar symptoms previously: Once. ( she had a similar issue in a different spot on her same foot a couple of months ago.). REVIEW OF SYSTEMS No chills, fever, sweats, calf pain or chest pain. No cough, difficulty breathing, pedal edema, palpitations or abdominal pain. No constipation, diarrhea, nausea, vomiting or urinary problems. All systems otherwise negative, except as recorded above. PAST HISTORY Tetanus immunization status is up-to-date. Problems: Cellulitis. Fibromyalgia. Diaqbetic neuropathy. Hypertension. Diabetes Mellitus. Additional Surgeries: Appendectomy. Facial reconstruction on face. Medications: ASA Oral 81mg daily . FLUoxetine HCl Oral 20 mg- 2 tabs daily . Lisinopril-Hydrochlorothiazide Oral (Tablet 10-12.5 mg) 1 tablet, daily . Metformin 500mg - 1 at breakfast, 2 and lunch and dinner . Methocarbamol Oral 750 mg- 2 tabs BID prn . Vicodin Oral 5 mg - 2 tabs BID. Allergies: No Known Drug Allergy. SOCIAL HISTORY Never smoker. No alcohol use or drug use. FAMILY HISTORY Denies family medical history. ADDITIONAL NOTES The nursing notes have been reviewed. PHYSICAL EXAM Vital Signs: 01/07/2017 10:48 BP: 129/51. HR: 71. RR: 18. O2 saturation: 96%. Temp: 97.6 F. Pain level now: 0/10. Have been reviewed. Appearance: Alert. No acute distress. Eyes: Pupils equal, round and reactive to light. ENT: Pharynx normal. Neck: Neck supple. CVS: Heart sounds normal. Respiratory: Breath sounds normal. Skin: Medium area of cellulitis with tenderness, erythema and warmth to right foot. No lymphangitis. Extremities: No calf tenderness. PROGRESS AND PROCEDURES Course of Care: Patient is stable. Patient/family counseled. Old medical records reviewed. Disposition: Discharged. Condition: stable. CLINICAL IMPRESSION Cellulitis of the right foot. INSTRUCTIONS Warnings: Further evaluation is necessary. GENERAL WARNINGS: Return or contact your physician immediately if your condition worsens or changes unexpectedly, if not improving as expected, or if other problems arise. Your Current Medications: CONTINUE TAKING THE FOLLOWING MEDICATIONS: ASA Oral : 81mg daily. FLUoxetine HCl Oral : 20 mg- 2 tabs daily. Lisinopril-Hydrochlorothiazide Oral : Tablet 10-12.5 mg, 1 tablet daily. Metformin 500mg - 1 at breakfast, 2 and lunch and dinner *. Methocarbamol Oral : 750 mg- 2 tabs BID prn. Vicodin Oral : 5 mg - 2 tabs BID. Prescription Medications: Bactrim DS 800 mg / 160 mg: take 1 tablet orally every 12 hours for 10 days. No refill. Substitution is permissible. Clindamycin 300 mg: take 1 capsule orally every 6 hours for 10 days. No refill. Understanding of the discharge instructions verbalized by patient. Follow-up with: Emanuel Mitchell DPM, Podiatry, , [facility], [address] [place] [address], [address], [place] [address] Follow up Monday in two days. Call for an appointment. (Electronically signed by Clinton Bautista MD 01/07/2017 13:12)
--- NOTE | 2017-01-07 11:16 | ED NURSING NOTES ---
Clinical Report - Nurses [facility] [address] [place] [address] 01/07/2017 10:39 Patient: MIGUEL ÁNGEL BERNSTEIN TRIAGE Triage time 10:48. Acuity: LEVEL 3. Chief Complaint: RIGHT LOWER EXTREMITY PAIN, SWELLING and REDNESS. Location of symptoms- (Blister that had popped). Alert. No acute distress. SEPSIS SCREEN: Sepsis Screen: negative. Negative (no infection suspected/documented). NICCI COMA SCORE: [place] Coma Scale: 15- eyes open spontaneously (4); best verbal response- oriented x 4 (5); best motor response- obeys commands (6). --10:57 Luzmaria Maza R.N. 10:48 01/07/17. BP: 129/51. HR: 71. RR: 18. O2 saturation: 96%. Temp: 97.6 F. Pain level now: 0/10. Additional comments: Has neuropathy . --10:57 Luzmaria Maza R.N. 10:48 01/07/17. BP: 129/51. HR: 71. RR: 18. O2 saturation: 96%. Temp: 97.6 F. Pain level now: 0/10. Additional comments: Has neuropathy . --10:58 Luzmaria aMza R.N. 10:48 01/07/17. BP: 129/51. HR: 71. RR: 18. O2 saturation: 96%. Temp: 97.6 F. Pain level now: 0/10. Additional comments: Has neuropathy . --10:58 Luzmaria Maza R.N. Weight: 104.3 kg stated. Height/Length: 63 inches Per Patient. BMI: 40.7. --10:56 Luzmaria Maza R.N. Medications ASA Oral 81mg daily . FLUoxetine HCl Oral 20 mg- 2 tabs daily . Lisinopril-Hydrochlorothiazide Oral (Tablet 10-12.5 mg) 1 tablet, daily . Metformin 500mg - 1 at breakfast, 2 and lunch and dinner . Methocarbamol Oral 750 mg- 2 tabs BID prn . Vicodin Oral 5 mg - 2 tabs BID. --10:53 Luzmaria Maza R.N. Medication/allergy information source: the patient. --10:57 Luzmaria Maza R.N. Allergies No Known Drug Allergy. --10:53 Luzmaria Maza R.N. History Arrived by private vehicle. Historian: patient. Primary physician (Stephany,). No injury occurred. This occurred (2 days ago). Provoking / relieving factors: worsened by walking; relieved by sitting. She has had redness. She has had trouble walking (Walking on the side). Treatment SEMICONDUCTOR PROCESSING GROUP LEADER: None. PAST MEDICAL HX: Tetanus status: up-to-date. The patient is post-menopausal. SOCIAL HX: Never smoker. No alcohol use or drug use. FALL RISK ASSESSMENT: Fall risk assessment completed. No fall risk identified. NUTRITIONAL RISK ASSESSMENT: The nutritional risk assessment revealed no deficiencies. FUNCTIONAL ASSESSMENT: Functional assessment: no impairments noted. LEARNING NEEDS ASSESSMENT: The learning needs assessment revealed no barriers. SKIN INTEGRITY ASSESSMENT: Skin integrity risk assessment completed. No skin integrity risk identified. --10:57 Luzmaria Maza R.N. PROBLEMS: Cellulitis. Fibromyalgia. Diaqbetic neuropathy. Hypertension. Diabetes Mellitus. --10:55 Luzmaria Maza R.N. ADDITIONAL SURGERIES: Appendectomy. Facial reconstruction on face. --10:55 Luzmaria Maza R.N. Interventions ID band on patient. To room. --10:57 Luzmaria Maza R.N. PHYSICAL ASSESSMENT Ambulatory to room. GENERAL / NEURO / PSYCH: Oriented X 4. Appears anxious. EXTREMITIES: Erythema on the extremities. Limited ROM present. Right foot: tenderness, swelling and erythema. SKIN: Skin is warm and dry. ( rt foot lateral). Skin breakdown noted. --10:59 Luzmaria Maza R.N. NURSING PROGRESS NOTES Extremity elevated. Two patient identifiers checked. Call light placed in reach. Side rails up x 2. Bed placed in lowest position. Brakes of bed on. Patient ready for evaluation. --10:59 Luzmaria Maza R.N. DISPOSITION / DISCHARGE 11:20. Condition at departure: unchanged. No learning barriers present. Reviewed medication(s) side effects, precautions, dosing and course information. Prescription(s) given to the patient. Reviewed referral to a chemistry department chair for followup. Patient verbalized understanding. Written instructions provided in Belgian. The patient was discharged home. She left the Emergency Department ambulatory and via private vehicle. Patient driving. Medication list reviewed and validated. --11:46 Luzmaria Maza R.N. 10:48 01/07/17. BP: 129/51. HR: 71. RR: 18. O2 saturation: 96%. Temp: 97.6 F. Pain level now: 0/10. Additional comments: Has neuropathy . --11:46 Luzmaria Maza R.N. Locked/Released at 01/07/2017 12:07 by Luzmaria Maza R.N.
--- NOTE | 2017-01-07 13:13 | ED MAR SUMMARY ---
..... Medication Administration Record [facility] [address] [place], [place] [id number] Patient: MIGUEL ÁNGEL BERNSTEIN Visit ID: [id number] [id number], F Weight: 104.3 kg Height/Length: 63 in BMI: 40.7 ALLERGIES: No Known Drug Allergy
--- NOTE | 2017-01-07 13:13 | ED DISCHARGE INSTRUCTIONS ---
Patient: MIGUEL ÁNGEL BERNSTEIN General Instructions [facility] VisitID: [id number] [place] [address] 61y, F Registration Date/Time: 01/07/2017 Cellulitis of the right foot. INSTRUCTIONS Warnings: Further evaluation is necessary. GENERAL WARNINGS: Return or contact your physician immediately if your condition worsens or changes unexpectedly, if not improving as expected, or if other problems arise. Your Current Medications: CONTINUE TAKING THE FOLLOWING MEDICATIONS: ASA Oral : 81mg daily. FLUoxetine HCl Oral : 20 mg- 2 tabs daily. Lisinopril-Hydrochlorothiazide Oral : Tablet 10-12.5 mg, 1 tablet daily. Metformin 500mg - 1 at breakfast, 2 and lunch and dinner *. Methocarbamol Oral : 750 mg- 2 tabs BID prn. Vicodin Oral : 5 mg - 2 tabs BID. Prescription Medications: Bactrim DS 800 mg / 160 mg: take 1 tablet orally every 12 hours for 10 days. No refill. Substitution is permissible. Clindamycin 300 mg: take 1 capsule orally every 6 hours for 10 days. No refill. Understanding of the discharge instructions verbalized by patient. Follow-up with: Emanuel Mitchell DPM, Podiatry, , [facility], [address] [place] [address], [place] [id number] Follow up Monday in two days. Call for an appointment. ADDITIONAL INFORMATION Cellulitis You have an infection of the skin known as cellulitis. This usually starts with a scrape, cut, insect bite, blister or other opening in the skin which becomes infected. This is a serious condition. It must be watched closely to be sure the infection is not spreading. With antibiotic treatment, the size of the red area will gradually shrink in size until the skin returns to normal. This will take 7-10 days. The red area should never increase in size once the antibiotic medicine has been started. Occasionally, an infection will be resistant to one antibiotic and another one will have to be used. Home Care: 1) Limit the use of the affected part, since excess movement can cause the infection to spread. 2) If the infection is on your leg, walk as little as possible during the first few days of the treatment. Keep your leg elevated while sitting. This will reduce swelling. 3) Take all of the antibiotic medicine exactly as directed until it is gone. Be careful not to miss any doses, especially during the first seven days. Follow Up with your doctor or this facility as directed. Check the infected area daily for the warning signs listed below. Get Prompt Medical Attention if any of the following occur: -- Spreading area of redness -- Increasing swelling or pain -- Appearance of pus or drainage -- Fever over 100.4 F (38.0 C) oral, or over 101.4 F (38.6 C) rectal, after two days on antibiotics Sulfamethoxazole, Trimethoprim Oral tablet What is this medicine? SULFAMETHOXAZOLE; TRIMETHOPRIM or SMX-TMP (suhl fuh meth OK radha zohl; trye METH oh prim) is a combination of a sulfonamide antibiotic and a second antibiotic, trimethoprim. It is used to treat or prevent certain kinds of bacterial infections. It will not work for colds, flu, or other viral infections. How should I use this medicine? Take this medicine by mouth with a full glass of water. Follow the directions on the prescription label. Take your medicine at regular intervals. Do not take it more often than directed. Do not skip doses or stop your medicine early. Talk to your solar designer regarding the use of this medicine in children. Special care may be needed. This medicine has been used in children as young as 2 months of age. What side effects may I notice from receiving this medicine? Side effects that you should report to your doctor or health care management specialist as soon as possible: allergic reactions like skin rash or hives, swelling of the face, lips, or tongue breathing problems fever or chills, sore throat irregular heartbeat, chest pain joint or muscle pain pain or difficulty passing urine red pinpoint spots on skin redness, blistering, peeling or loosening of the skin, including inside the mouth unusual bleeding or bruising unusually weak or tired yellowing of the eyes or skin Side effects that usually do not require medical attention (report to your doctor or health care management specialist if they continue or are bothersome): diarrhea dizziness headache loss of appetite nausea, vomiting nervousness What may interact with this medicine? Do not take this medicine with any of the following medications: aminobenzoate potassium dofetilide metronidazole This medicine may also interact with the following medications: MELISSA inhibitors like benazepril, enalapril, lisinopril, and ramipril cyclosporine digoxin diuretics indomethacin medicines for diabetes methenamine methotrexate phenytoin potassium supplements pyrimethamine sulfinpyrazone tricyclic antidepressants warfarin What if I miss a dose? If you miss a dose, take it as soon as you can. If it is almost time for your next dose, take only that dose. Do not take double or extra doses. Where should I keep my medicine? Keep out of the reach of children. Store at room temperature between 20 to 25 degrees C (68 to 77 degrees F). Protect from light. Throw away any unused medicine after the expiration date. What should I tell my health care provider before I take this medicine? They need to know if you have any of these conditions: anemia asthma being treated with anticonvulsants if you frequently drink alcohol containing drinks kidney disease liver disease low level of folic acid or [id number] dehydrogenase poor nutrition or malabsorption porphyria severe allergies thyroid disorder an unusual or allergic reaction to sulfamethoxazole, trimethoprim, sulfa drugs, other medicines, foods, dyes, or preservatives or trying to get breast-feeding What should I watch for while using this medicine? Tell your doctor or health care management specialist if your symptoms do not improve. Drink several glasses of water a day to reduce the risk of kidney problems. Do not treat diarrhea with over the counter products. Contact your doctor if you have diarrhea that lasts more than 2 days or if it is severe and watery. This medicine can make you more sensitive to the sun. Keep out of the sun. If you cannot avoid being in the sun, wear protective clothing and use a sunscreen. Do not use sun lamps or tanning beds/booths. Clindamycin Hydrochloride Oral capsule What is this medicine? CLINDAMYCIN (KLIN da MYE sin) is a lincosamide antibiotic. It is used to treat certain kinds of bacterial infections. It will not work for colds, flu, or other viral infections. How should I use this medicine? Take this medicine by mouth with a full glass of water. Follow the directions on the prescription label. You can take this medicine with food or on an empty stomach. If the medicine upsets your stomach, take it with food. Take your medicine at regular intervals. Do not take your medicine more often than directed. Take all of your medicine as directed even if you think your are better. Do not skip doses or stop your medicine early. Talk to your solar designer regarding the use of this medicine in children. Special care may be needed. What side effects may I notice from receiving this medicine? Side effects that you should report to your doctor or health care management specialist as soon as possible: allergic reactions like skin rash, itching or hives, swelling of the face, lips, or tongue dark urine pain on swallowing redness, blistering, peeling or loosening of the skin, including inside the mouth unusual bleeding or bruising unusually weak or tired yellowing of eyes or skin Side effects that usually do not require medical attention (report to your doctor or health care management specialist if they continue or are bothersome): diarrhea itching in the rectal or genital area joint pain nausea, vomiting stomach pain What may interact with this medicine? chloramphenicol erythromycin kaolin products What if I miss a dose? If you miss a dose, take it as soon as you can. If it is almost time for your next dose, take only that dose. Do not take double or extra doses. Where should I keep my medicine? Keep out of the reach of children. Store at room temperature between 20 and 25 degrees C (68 and 77 degrees F). Throw away any unused medicine after the expiration date. What should I tell my health care provider before I take this medicine? They need to know if you have any of these conditions: kidney disease liver disease stomach problems like colitis an unusual or allergic reaction to clindamycin, lincomycin, or other medicines, foods, dyes like tartrazine or preservatives or trying to get breast-feeding What should I watch for while using this medicine? Tell your doctor or healthcare professional if your symptoms do not start to get better or if they get worse. Do not treat diarrhea with over the counter products. Contact your doctor if you have diarrhea that lasts more than 2 days or if it is severe and watery. You have been given the following additional information: Cellulitis Sulfamethoxazole, Trimethoprim Oral tablet Clindamycin Hydrochloride Oral capsule (Electronically signed by Clinton Bautista MD 01/07/2017 13:12)
--- NOTE | 2017-01-07 13:13 | ED MAR SUMMARY ---
..... Medication Administration Record [facility] [address] [place], [place] [id number] Patient: MIGUEL ÁNGEL BERNSTEIN Visit ID: [id number] 61y, F Weight: 104.3 kg Height/Length: 63 in BMI: 40.7 ALLERGIES: No Known Drug Allergy
--- NOTE | 2017-01-07 13:13 | ED MED RECONCILIATION SUMMARY ---
Patient: MIGUEL ÁNGEL BERNSTEIN Medication Reconciliation Report [facility] VisitID: [id number] [address] [place] [address] 61y, F Registration Date/Time: 01/07/2017 Weight: 104.3 kg Height/Length: 63 in. BMI: 40.7 ALLERGIES: No Known Drug Allergy The patient's Home Medications are listed below: CONTINUE TAKING THE FOLLOWING MEDICATIONS: ASA Oral 81mg daily FLUoxetine HCl Oral 20 mg- 2 tabs daily Lisinopril-Hydrochlorothiazide Oral (10-12.5 mg) 1 tablet, daily Metformin 500mg - 1 at breakfast, 2 and lunch and dinner Methocarbamol Oral 750 mg- 2 tabs BID prn Vicodin Oral 5 mg - 2 tabs BID The source(s) of the original Home Medication information: patient The following Medications were given to the patient in the Emergency Department: None. The following Medications were prescribed to the patient: Bactrim DS 800 mg / 160 mg: take 1 tablet orally every 12 hours for 10 days. No refill. Substitution is permissible. -- Clinton Bautista MD Clindamycin 300 mg: take 1 capsule orally every 6 hours for 10 days. No refill. -- Clinton Bautista MD
--- NOTE | 2017-01-07 13:13 | ED DISCHARGE INSTRUCTIONS ---
Patient: MIGUEL ÁNGEL BERNSTEIN General Instructions [facility] VisitID: [id number] [place] [address] 61y, F Registration Date/Time: 01/07/2017 Cellulitis of the right foot. INSTRUCTIONS Warnings: Further evaluation is necessary. GENERAL WARNINGS: Return or contact your physician immediately if your condition worsens or changes unexpectedly, if not improving as expected, or if other problems arise. Your Current Medications: CONTINUE TAKING THE FOLLOWING MEDICATIONS: ASA Oral : 81mg daily. FLUoxetine HCl Oral : 20 mg- 2 tabs daily. Lisinopril-Hydrochlorothiazide Oral : Tablet 10-12.5 mg, 1 tablet daily. Metformin 500mg - 1 at breakfast, 2 and lunch and dinner *. Methocarbamol Oral : 750 mg- 2 tabs BID prn. Vicodin Oral : 5 mg - 2 tabs BID. Prescription Medications: Bactrim DS 800 mg / 160 mg: take 1 tablet orally every 12 hours for 10 days. No refill. Substitution is permissible. Clindamycin 300 mg: take 1 capsule orally every 6 hours for 10 days. No refill. Understanding of the discharge instructions verbalized by patient. Follow-up with: Emanuel Mitchell DPM, Podiatry, , [facility], [address] [place] [address], [place] [phone] Follow up Monday in two days. Call for an appointment. ADDITIONAL INFORMATION Cellulitis You have an infection of the skin known as cellulitis. This usually starts with a scrape, cut, insect bite, blister or other opening in the skin which becomes infected. This is a serious condition. It must be watched closely to be sure the infection is not spreading. With antibiotic treatment, the size of the red area will gradually shrink in size until the skin returns to normal. This will take 7-10 days. The red area should never increase in size once the antibiotic medicine has been started. Occasionally, an infection will be resistant to one antibiotic and another one will have to be used. Home Care: 1) Limit the use of the affected part, since excess movement can cause the infection to spread. 2) If the infection is on your leg, walk as little as possible during the first few days of the treatment. Keep your leg elevated while sitting. This will reduce swelling. 3) Take all of the antibiotic medicine exactly as directed until it is gone. Be careful not to miss any doses, especially during the first seven days. Follow Up with your doctor or this facility as directed. Check the infected area daily for the warning signs listed below. Get Prompt Medical Attention if any of the following occur: -- Spreading area of redness -- Increasing swelling or pain -- Appearance of pus or drainage -- Fever over 100.4 F (38.0 C) oral, or over 101.4 F (38.6 C) rectal, after two days on antibiotics Sulfamethoxazole, Trimethoprim Oral tablet What is this medicine? SULFAMETHOXAZOLE; TRIMETHOPRIM or SMX-TMP (suhl fuh meth OK radha zohl; trye METH oh prim) is a combination of a sulfonamide antibiotic and a second antibiotic, trimethoprim. It is used to treat or prevent certain kinds of bacterial infections. It will not work for colds, flu, or other viral infections. How should I use this medicine? Take this medicine by mouth with a full glass of water. Follow the directions on the prescription label. Take your medicine at regular intervals. Do not take it more often than directed. Do not skip doses or stop your medicine early. Talk to your cert occupational therapy asst regarding the use of this medicine in children. Special care may be needed. This medicine has been used in children as young as 2 months of age. What side effects may I notice from receiving this medicine? Side effects that you should report to your doctor or health hospice home care coordinator as soon as possible: allergic reactions like skin rash or hives, swelling of the face, lips, or tongue breathing problems fever or chills, sore throat irregular heartbeat, chest pain joint or muscle pain pain or difficulty passing urine red pinpoint spots on skin redness, blistering, peeling or loosening of the skin, including inside the mouth unusual bleeding or bruising unusually weak or tired yellowing of the eyes or skin Side effects that usually do not require medical attention (report to your doctor or health hospice home care coordinator if they continue or are bothersome): diarrhea dizziness headache loss of appetite nausea, vomiting nervousness What may interact with this medicine? Do not take this medicine with any of the following medications: aminobenzoate potassium dofetilide metronidazole This medicine may also interact with the following medications: MELISSA inhibitors like benazepril, enalapril, lisinopril, and ramipril cyclosporine digoxin diuretics indomethacin medicines for diabetes methenamine methotrexate phenytoin potassium supplements pyrimethamine sulfinpyrazone tricyclic antidepressants warfarin What if I miss a dose? If you miss a dose, take it as soon as you can. If it is almost time for your next dose, take only that dose. Do not take double or extra doses. Where should I keep my medicine? Keep out of the reach of children. Store at room temperature between 20 to 25 degrees C (68 to 77 degrees F). Protect from light. Throw away any unused medicine after the expiration date. What should I tell my health care provider before I take this medicine? They need to know if you have any of these conditions: anemia asthma being treated with anticonvulsants if you frequently drink alcohol containing drinks kidney disease liver disease low level of folic acid or [id number] dehydrogenase poor nutrition or malabsorption porphyria severe allergies thyroid disorder an unusual or allergic reaction to sulfamethoxazole, trimethoprim, sulfa drugs, other medicines, foods, dyes, or preservatives or trying to get breast-feeding What should I watch for while using this medicine? Tell your doctor or health hospice home care coordinator if your symptoms do not improve. Drink several glasses of water a day to reduce the risk of kidney problems. Do not treat diarrhea with over the counter products. Contact your doctor if you have diarrhea that lasts more than 2 days or if it is severe and watery. This medicine can make you more sensitive to the sun. Keep out of the sun. If you cannot avoid being in the sun, wear protective clothing and use a sunscreen. Do not use sun lamps or tanning beds/booths. Clindamycin Hydrochloride Oral capsule What is this medicine? CLINDAMYCIN (KLIN da MYE sin) is a lincosamide antibiotic. It is used to treat certain kinds of bacterial infections. It will not work for colds, flu, or other viral infections. How should I use this medicine? Take this medicine by mouth with a full glass of water. Follow the directions on the prescription label. You can take this medicine with food or on an empty stomach. If the medicine upsets your stomach, take it with food. Take your medicine at regular intervals. Do not take your medicine more often than directed. Take all of your medicine as directed even if you think your are better. Do not skip doses or stop your medicine early. Talk to your cert occupational therapy asst regarding the use of this medicine in children. Special care may be needed. What side effects may I notice from receiving this medicine? Side effects that you should report to your doctor or health hospice home care coordinator as soon as possible: allergic reactions like skin rash, itching or hives, swelling of the face, lips, or tongue dark urine pain on swallowing redness, blistering, peeling or loosening of the skin, including inside the mouth unusual bleeding or bruising unusually weak or tired yellowing of eyes or skin Side effects that usually do not require medical attention (report to your doctor or health hospice home care coordinator if they continue or are bothersome): diarrhea itching in the rectal or genital area joint pain nausea, vomiting stomach pain What may interact with this medicine? chloramphenicol erythromycin kaolin products What if I miss a dose? If you miss a dose, take it as soon as you can. If it is almost time for your next dose, take only that dose. Do not take double or extra doses. Where should I keep my medicine? Keep out of the reach of children. Store at room temperature between 20 and 25 degrees C (68 and 77 degrees F). Throw away any unused medicine after the expiration date. What should I tell my health care provider before I take this medicine? They need to know if you have any of these conditions: kidney disease liver disease stomach problems like colitis an unusual or allergic reaction to clindamycin, lincomycin, or other medicines, foods, dyes like tartrazine or preservatives or trying to get breast-feeding What should I watch for while using this medicine? Tell your doctor or healthcare professional if your symptoms do not start to get better or if they get worse. Do not treat diarrhea with over the counter products. Contact your doctor if you have diarrhea that lasts more than 2 days or if it is severe and watery. You have been given the following additional information: Cellulitis Sulfamethoxazole, Trimethoprim Oral tablet Clindamycin Hydrochloride Oral capsule (Electronically signed by Clinton Bautista MD 01/07/2017 13:12)
--- NOTE | 2017-01-07 13:13 | ED MED RECONCILIATION SUMMARY ---
Patient: MIGUEL ÁNGEL BERNSTEIN Medication Reconciliation Report [facility] VisitID: [id number] [address] [place] [address] 61y, F Registration Date/Time: 01/07/2017 Weight: 104.3 kg Height/Length: 63 in. BMI: 40.7 ALLERGIES: No Known Drug Allergy The patient's Home Medications are listed below: CONTINUE TAKING THE FOLLOWING MEDICATIONS: ASA Oral 81mg daily FLUoxetine HCl Oral 20 mg- 2 tabs daily Lisinopril-Hydrochlorothiazide Oral (10-12.5 mg) 1 tablet, daily Metformin 500mg - 1 at breakfast, 2 and lunch and dinner Methocarbamol Oral 750 mg- 2 tabs BID prn Vicodin Oral 5 mg - 2 tabs BID The source(s) of the original Home Medication information: patient The following Medications were given to the patient in the Emergency Department: None. The following Medications were prescribed to the patient: Bactrim DS 800 mg / 160 mg: take 1 tablet orally every 12 hours for 10 days. No refill. Substitution is permissible. -- Clinton Bautista MD Clindamycin 300 mg: take 1 capsule orally every 6 hours for 10 days. No refill. -- Clinton Bautista MD
== END 2017-01-07 11:20 | disposition home or self-care (01) ==
LOC: ED SRH 10:38
DX: L03.115 Cellulitis of right lower limb (principal); I10 Essential (primary) hypertension; E11.9 Type 2 diabetes mellitus without complications; Z79.84 Long term (current) use of oral hypoglycemic drugs; Z79.82 Long term (current) use of aspirin; Z79.891 Long term (current) use of opiate analgesic; Z79.899 Other long term (current) drug therapy